=== PATIENT | male | born 1980 | race Caucasian/White ===

== ENCOUNTER 2017-04-04 21:59 | Emergency (ER) | payer SELFPAY ==
[2017-04-04 22:16] VITALS: BP 140/121
--- NOTE | 2017-04-04 22:26 | EDM.PDOC ---
ED HPI GENERAL MEDICAL PROBLEM - General Chief Complaint: Upper Extremity Injury/Pain Stated Complaint: EVAL Time Seen by Provider: 04/04/17 22:21 Source of Information: Reports: Patient, Police, RN Notes Reviewed History Limitations: Reports: No Limitations - History of Present Illness INITIAL COMMENTS - FREE TEXT/NARRATIVE: 36-year-old gentleman presents emergency department via law enforcement he punched a wall with his right hand he now has swelling over digits 4 and 5 he does have some superficial abrasions also appreciated on the fingers dorsal surface - Related Data Allergies Allergy/AdvReac Type Severity Reaction Status Date / Time No Known Allergies Allergy Verified 06/24/16 10:49 Home Meds: Home Meds NK [No Known Home Meds] 11/17/13 [History] Past Medical History - Past Health History Medical/Surgical History: Denies Medical/Surgical History - Past Surgical History Musculoskeletal Surgical History: Reports: Other (See Below) Other Musculoskeletal Surgeries/Procedures:: Partial amputation of Left fingers 1 2 3 4 Social & Family History - Tobacco Use Smoking Status *Q: Never Smoker Tobacco Use Comment: current smoker Second Hand Smoke Exposure: No - Caffeine Use Caffeine Use: Reports: Coffee - Alcohol Use Days Per Week of Alcohol Use: 1 Number of Drinks Per Day: 1 Total Drinks Per Week: 1 - Recreational Drug Use Recreational Drug Use: No Recreational Drug Use Frequency: Patient Refuses To Answer Review of Systems - Review of Systems Review Of Systems: See Below Musculoskeletal: Reports: Hand Pain Skin: Reports: Wound Neurological: Reports: No Symptoms ED EXAM, GENERAL - Physical Exam Exam: See Below Free Text/Narrative:: Examination of the right hand I do appreciate some edema bruising over the metacarpal area for an 5 he has full range of motion digits 12 and 3 limited on 4,5 secondary to pain and swelling radial pulses +2 ED TRAUMA EXTREMITY PROCEDURES - Splinting Right Upper Extremity Pre-Procedure NV Status: Normal Post-Procedure NV Status: Normal Splint Material: Fiberglass Splint Design: Volar Applied & Form Fitted By: Provider, Nurse Provider Post-Splint Application NV Check: NV Status Normal, Good Position Complications: No Course - Vital Signs Last Recorded V/S: Last Vital Signs Temp 96.2 F 04/04/17 22:22 Pulse 116 H 04/04/17 22:22 Resp 16 04/04/17 22:22 BP 140/121 H 04/04/17 22:22 Pulse Ox 98 04/04/17 22:22 - Orders/Labs/Meds Orders: Active Orders 24 hr Category Date Time Status Hand Comp Min 3V Rt [CR] Stat Exams 04/04/17 22:23 Taken Meds: Medications Discontinued Medications Generic Name Dose Route Start Last Admin Trade Name Joseph PRN Reason Stop Dose Admin Cefazolin Sodium 1 gm 04/04/17 22:46 04/04/17 22:59 Ancef IM 04/04/17 22:47 1 gm ONETIME ONE Administration Hydromorphone HCl 1 mg 04/04/17 22:46 04/04/17 22:56 Dilaudid IM 04/04/17 22:47 1 mg ONETIME ONE Administration Sterile Water 10 ml 04/04/17 22:49 Sterile Water For Injection INJECT 04/04/17 22:50 NOW STA Departure - Departure Time of Disposition: 22:52 Disposition: DC/Tfer to Court of Law En 21 Condition: Good Clinical Impression: Fracture of fifth metacarpal bone Qualifiers: Encounter type: initial encounter Fracture type: closed Metacarpal location: shaft Fracture alignment: displaced Laterality: right Qualified Code(s): S62.326A - Displaced fracture of shaft of fifth metacarpal bone, right hand, initial encounter for closed fracture - Discharge Information Referrals: Jarocho Durán MD [Primary Care Provider] - Forms: ED Department Discharge Additional Instructions: Please follow-up with orthopedic surgery tomorrow - My Orders Last 24 Hours: My Active Orders 04/04/17 22:23 Hand Comp Min 3V Rt [CR] Stat - Assessment/Plan Last 24 Hours: My Active Orders 04/04/17 22:23 Hand Comp Min 3V Rt [CR] Stat Plan: Assessment Acuity = acute Site and laterality = fracture fifth metacarpal midshaft 100% displacement Etiology = secondary to trauma punching a wall Manifestations = pain Location of injury = Home Lab values = x-rays described the fracture above fissure read radiology is pending Plan Called and discussed case with orthopedics on-call Dr. Ortiz he agreed to evaluate the patient in order clinic tomorrow he'll be placed in a volar splint , he was given 1 g Ancef now Patient was in agreement with the plan all questions were answered, they were instructed to return to the emergency department or call for worsening symptoms. This note was dictated using [employer] voice recognition software please call with any questions.
[2017-04-04] MEDS ORDERED: ceFAZolin 1 GM Vial IM ONE (22:46)
[2017-04-04] MEDS ORDERED: HYDROmorphone 1 MG/ML Syringe IM ONE (22:46)
[2017-04-04] MEDS ORDERED: Water For Injection, Sterile 50 ML SDV INJECT STA (22:49)
--- NOTE | 2017-04-05 08:33 | CR ---
Hand Comp Min 3V Rt INDICATION: pain over 5th metacarpal FINDINGS: Acute, mildly displaced, mildly comminuted fracture through the distal one third of the rig ht fifth metacarpal. Old healed fracture of the midshaft of the right fourth metacarpal.
== END 2017-04-04 23:30 ==
LOC: JP.ED 21:59
DX: S62.326A Displaced fracture of shaft of fifth metacarpal bone, right hand, initial encounter for closed fracture (principal); S60.221A Contusion of right hand, initial encounter; W22.01XA Walked into wall, initial encounter
CPT/HCPCS: 29125; 73130; 99284; J0690; J1170; 99283-25